=== PATIENT | male | born 1940 | race American Indian/Alaskan Native ===

== ENCOUNTER 2020-02-02 13:59 | Emergency (ER) | payer OTHER ==
[2020-02-02 16:02] VITALS: BMI 29.0
--- NOTE | 2020-02-02 16:29 | PDOC ---
Documentation entered by Emir Hernandez SCRIBE, acting as scribe for Korey Ortiz MD. Korey Ortiz MD: This documentation has been prepared by the David ordonez Xhesika, SCRIBE, under my direction and personally reviewed by me in its entirety. I confirm that the documentation accurately reflects all work, treatment, procedures, and medical decision making performed by me. Attending Attestation - Resident Resident Name: Danny Fisher - ED Attending Attestation I have performed the following: I have examined & evaluated the patient, The case was reviewed & discussed with the resident, I agree w/resident's findings & plan, Exceptions are as noted - HPI HPI: 02/02/20 15:32 The patient is a 79 year old male with a PMH of brain Ca (10years ago) and recent memory loss who presents to the ED BIBA for "headache." Pt states he does not know why he is here and does not have any complaints. After numerous phone calls were made, Pt was brought to the ED because Super called EMS because the super was concerned after pt was vomiting. The patient denies chest pain, shortness of breath, and dizziness. Denies fever, chills, cough, nausea, and constipation. Denies dysuria, frequency, urgency and hematuria. Allergy: NKDA Social: Denies alcohol, cigarette or drug use. - Physicial Exam PE: 02/02/20 16:29 Vitals: Triage Vital signs reviewed General Appearance: No acute distress, well nourished well developed, Head: Atraumatic, Cardiac: Regular rate and rhythym, no murmurs, no rubs, no gallops, Lungs: Clear to auscultation bilateral, good air movement bilaterally, Abdomen: Soft, non distended, normal bowel sounds, non tender to palpation Extremities: Full range of motion to all extremities, no cyanosis, clubbing, or edema Skin: Warm and dry, no rashes or lesions, no rash, no petechiae Neuro: cranial Nerves 2-12 grossly intact, strength intact to all extremities, sensation intact to all extremities, gait normal Psych: Normal mood, normal affect - Medical Decision Making 02/02/20 16:29 Sent to the emergency department for evaluation by superintendent track for one episode of vomiting Patient with no complaints will check head CT labs EKG Dr. Botello to follow-up labs social work to set up VNS for tomorrow patient well-appearing no apparent distress will call daughter Discharge - Discharge Information Problems reviewed: Yes Clinical Impression/Diagnosis: Dizzy Condition: Good Disposition: HOME - Follow up/Referral Referrals: [facility] [Provider Group] - Patient Discharge Instructions - Post Discharge Activity
[2020-02-02 16:30] LABS: BASO % 0.9 % (0-2.0); EOS % 0.6 % (0-4.5); HEMATOCRIT 38.7 % (35.4-49); HEMOGLOBIN 13.4 GM/dL (11.7-16.9); LYMPH % 26.5 % (8-40); MCH 31.3 pg (25.7-33.7); MCHC 34.6 g/dl (32.0-35.9); MEAN CELL VOLUME 90.5 fl (80-96); MEAN PLT VOLUME 7.1 fl (7.5-11.1); MONO % 8.3 % (3.8-10.2); NEUT % 63.7 % (42.8-82.8); PLATELET COUNT 225 K/MM3 (134-434); RBC 4.28 M/mm3 (4.00-5.60); RDW 13.8 % (11.9-15.9); WHITE BLOOD COUNT 4.7 K/mm3 (4.0-10.0)
[2020-02-02 16:40] LABS: ALBUMIN 3.7 g/dl (3.4-5.0); BILIRUBIN,TOTAL 0.4 mg/dL (0.2-1); BLOOD UREA NITROGEN 16.4 mg/dL (7-18); CALCIUM 8.9 mg/dL (8.5-10.1); CREATININE 0.8 mg/dL (0.55-1.3); POTASSIUM 4.1 mmol/L (3.5-5.1); TOT PROT 6.9 g/dl (6.4-8.2)
--- NOTE | 2020-02-02 17:16 | PDOC ---
History of Present Illness - General Chief Complaint: Headache Stated Complaint: NAUSEA Time Seen by Provider: 02/02/20 14:52 - History of Present Illness Initial Comments: 02/02/20 16:53 79yo M, Japanese-speaking only, communicated w/ via audio production engineer phone. BIBEMS for supposed headache, although EMS supposedly states Reports he does not know why he is in the ED and that he was transported here. He reports a hx of brain cancer tx w/ radiation and consequent memory issues. He endorses 'significant trouble with memory' recently. 02/04/20 11:39 Denies fevers, n/v/d, cough, recent illness, travel, rashes, vertiginous or lightheaded symptoms. Past History - Medical History Allergies/Adverse Reactions: Allergies Allergy/AdvReac Type Severity Reaction Status Date / Time No Known Allergies Allergy Verified 02/02/20 14:37 COPD: No HTN: No - Psycho-Social/Smoking History Smoking History: Never smoked - Substance Abuse Hx (Audit-C & DAST Scrn) In the last yr the pt used illegal drug/Rx for NonMed reason: No Score: Yes response is considered Positive: 0 Screen Result (Positive result requires Nsg. DAST-10): Negative Review of Systems - Review of Systems Able to Perform ROS?: Yes Is the patient limited Cuban proficient: Yes Constitutional: No: Chills, Weakness HEENTM: No: Blurred Vision, Nose Congestion Respiratory: No: Cough, Shortness of Breath, SOB with Exertion Cardiac (ROS): No: Chest Pain, Palpitations ABD/GI: No: Constipated, Diarrhea : No: Burning, Flank Pain, Pain Musculoskeletal: No: Back Pain Integumentary: No: Rash, Sweating Neurological: Yes: Weakness Psychiatric: No: Sleep Pattern Change, Change in Appetite Endocrine: No: Symptoms Reported All Other Systems: Reviewed and Negative *Physical Exam - Vital Signs Last Vital Signs Temp Pulse Resp BP Pulse Ox 97.5 F L 87 16 170/91 100 02/02/20 14:00 02/02/20 14:00 02/02/20 14:00 02/02/20 14:00 02/02/20 14:00 - Physical Exam General Appearance: Yes: Nourished, Appropriately Dressed, Thin HEENT: positive: EOMI, Normal ENT Inspection, Normal Voice (only speaks Japanese ). negative: Muffled/Hoarse voice Neck: positive: Trachea midline, Supple Respiratory/Chest: positive: Lungs Clear, Normal Breath Sounds Cardiovascular: positive: Regular Rhythm, Regular Rate Gastrointestinal/Abdominal: positive: Normal Bowel Sounds, Soft Musculoskeletal: positive: Normal Inspection. negative: CVA Tenderness Extremity: positive: Normal Capillary Refill, Normal Inspection, Normal Range of Motion Integumentary: positive: Normal Color, Dry, Warm Neurologic: positive: asphalt tamper II-XII NML intact, Fully Oriented (A/O x3), Alert, Normal Mood/Affect, Normal Response ED Treatment Course - LABORATORY CBC & Chemistry Diagram: 02/02/20 15:35 02/02/20 15:35 - ADDITIONAL ORDERS Additional order review: Laboratory Results 02/02/20 15:35 Sodium 137 Potassium 4.1 Chloride 104 Carbon Dioxide 28 Anion Gap 6 L BUN 16.4 Creatinine 0.8 Est GFR (CKD-EPI)AfAm 98.47 Est GFR (CKD-EPI)NonAf 84.96 Random Glucose 107 H Calcium 8.9 Total Bilirubin 0.4 AST 11 L ALT 13 Alkaline Phosphatase 42 L Total Protein 6.9 Albumin 3.7 Lipase 149 02/02/20 15:35 RBC 4.28 MCV 90.5 MCHC 34.6 RDW 13.8 MPV 7.1 L Neutrophils % 63.7 Lymphocytes % 26.5 Monocytes % 8.3 Eosinophils % 0.6 Basophils % 0.9 Medical Decision Making - Medical Decision Making 02/02/20 19:42 pt did not know why he was brought here. Neighbor called 911. Neighbor was called to find out why 911 was called. Neighbor stated pt reported fever and nausea. Pt endorsed no complaints except for memory issues consequent to her br ain CA radiation. He was not febrile, tachycardic, hypotensive, ill-appearing, or distressed on presentation. Pt spoke no polish; only bengali. PE was normal, No findings on Hx, CT showed chronic SDH, V/s wnl, labs wnl, pt feels well -> will dc back home. Discharge - Discharge Information Problems reviewed: Yes Clinical Impression/Diagnosis: Dizzy Condition: Good Disposition: HOME - Admission No - Follow up/Referral Referrals: [facility] [Provider Group] - Patient Discharge Instructions - Post Discharge Activity
[2020-02-02 18:42] VITALS: BP 115/66; PULSE 74; TEMP 98.3
--- NOTE | 2020-02-03 09:43 | EKG ---
Test Reason : Blood Pressure : / mmHG Vent. Rate : 057 BPM Atrial Rate : 057 BPM P-R Int : 188 ms QRS Dur : 074 ms QT Int : 424 ms P-R-T Axes : 058 016 071 degrees QTc Int : 412 ms SINUS BRADYCARDIA OTHERWISE NORMAL ECG NO PREVIOUS ECGS AVAILABLE Confirmed by Jd Hannah ([id number]) on 02/03/2020 9:42:53 AM Referred By: Confirmed By:Jd Hannah
== END 2020-02-02 19:01 | disposition home or self-care (01) ==
LOC: JER 13:59
DX: R42 Dizziness and giddiness (principal)
CPT/HCPCS: 36415; 70450-TC; 71045-TC-FY; 80053; 83690; 85025; 93005; 93010; 99285-25; U0003